=== PATIENT | female | born 1960 | race Caucasian/White ===

== ENCOUNTER → 2020-05-09 07:32 | Outpatient (CLI) | payer OTHER, SELFPAY ==
--- NOTE | ~2020-05-09 | MR_ITS ---
EXAMINATION: MR ankle LT wo con DATE: 05/09/2020 08:23 INDICATION: Burning left ankle pain. TECHNIQUE: Magnetic resonance imaging (MRI) of the left ankle was performed without intravenous contr ast. Sequences included sagittal, coronal, and axial proton-density weighted fast spin echo without a nd with fat saturation. COMPARISON: None. FINDINGS: Medial ankle ligaments: Deep and superficial deltoid ligaments as well as the spring ligament are normal. Lateral ankle ligaments: The anterior and posterior inferior tibiofibular ligaments are normal. The anterior talofibular, calc aneofibular and posterior talofibular ligaments are normal. Tendons: Mild Achilles peritendinitis with mild tendinosis without discrete tear at the distal insertion of th e Achilles tendon. Small amount of fluid along the peroneal tendon sheath consistent with mild tenosy novitis. There is mild peroneus brevis tendinopathy with longitudinal split tear. The tibialis anteri or and extensor hallucis longus and extensor digitorum longus tendons are normal. The flexor digitoru m longus and flexor hallucis longus tendons are normal. Small amount of fluid consistent with mild te nosynovitis along the otherwise normal posterior tibial tendon. Plantar fascia: Plantar aponeurosis is normal. Bones/other: There is a chronic nondisplaced, nonunited avulsion fracture at the tip of the lateral malleolus whic h includes the insertion of the anterior talofibular ligament. Bone alignment is normal. No acute fra cture. No reactive marrow edema, osteochondral lesion or pathologic marrow replacing process. Joint s paces are normal. No cortical erosions. Tarsal tunnel and sinus Tarsi are normal. Fluid: Physiologic amount fluid in the joint spaces. Mild edema in the soft tissues surrounding the retrocal caneal bursa which measures approximately 13 x 7 x 7 mm consistent with retrocalcaneal bursitis. IMPRESSION: 1. Mild Achilles peritendinitis and mild tendinosis at the distal insertion of the Achilles tendon wi thout discrete tendon tear. 2. Retrocalcaneal bursitis. 3. 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 4. Mild tibialis posterior and peroneal tenosynovitis with mild tendinopathy and longitudinal split t ear of the peroneus brevis tendon. Reviewed, dictated and finalized at location A. IMPRESSION: 1. Mild Achilles peritendinitis and mild tendinosis at the distal insertion of the Achilles tendon without discrete tendon tear. 2. Retrocalcaneal bursitis. 3. Chronic nonunited avulsion fracture fragment at the tip of the lateral malle olus which includes the footplate of the anterior talofibular ligament. 4. Mild tibialis posterior and peroneal tenosynovitis with mild tendinopathy an d longitudinal split tear of the peroneus brevis tendon.
== END ==
PROVIDERS: Visit Provider Orthopaedic Surgery
DX: G89.29 Other chronic pain (principal); M77.52 Other enthesopathy of left foot and ankle; S82.62XA Displaced fracture of lateral malleolus of left fibula, initial encounter for closed fracture; X58.XXXA Exposure to other specified factors, initial encounter
CPT/HCPCS: 73721

== ENCOUNTER → 2020-08-28 07:51 | Outpatient (CLI) | payer OTHER, SELFPAY ==
--- NOTE | ~2020-08-28 | US_ITS ---
EXAMINATION: US right upper quadrant DATE: 08/28/2020 08:14 INDICATION: Abnormal liver function tests. TECHNIQUE: Multiple grayscale and Doppler ultrasound images of the abdomen were obtained. COMPARISON: None FINDINGS: Abdominal aorta is normal in caliber. The visualized portions of the head and body of the p ancreas are normal. There is diffuse hepatic steatosis. No liver surface nodularity. There is normal flow in main portal vein. The gallbladder is normal in size. No gallstones or gallbladder wall thicke yoel. There was no sonographic Hunt sign. The common duct is normal and measures 4 mm. IMPRESSION: 1. Diffuse hepatic steatosis. Reviewed, dictated and finalized at location A. L MGR
== END ==
PROVIDERS: PCP Family Medicine; Visit Provider Family Medicine
DX: R79.89 Other specified abnormal findings of blood chemistry (principal); K76.0 Fatty (change of) liver, not elsewhere classified
CPT/HCPCS: 76705

== ENCOUNTER → 2021-07-10 09:15 | Outpatient (CLI) | payer OTHER, SELFPAY ==
--- NOTE | ~2021-07-10 | MR_ITS ---
EXAMINATION: MR ankle LT wo con DATE: 07/10/2021 10:18 INDICATION: Chronic left ankle pain. Assess for Achilles tendon tear.. TECHNIQUE: Magnetic resonance imaging (MRI) of the left ankle was performed without intravenous contr ast. Sequences included sagittal, coronal, and axial proton-density weighted fast spin echo without a nd with fat saturation. COMPARISON: 05/09/2020 FINDINGS: Medial ankle ligaments: Deep and superficial deltoid ligaments as well as the spring ligament are normal. Lateral ankle ligaments: The anterior and posterior inferior tibiofibular ligaments are normal. The anterior talofibular, calc aneofibular and posterior talofibular ligaments are normal. Tendons: Increased now moderate thickening of the distal Achilles tendon consistent with tendinosis without di screte tear. There are a pair of new fixation screws at the calcaneal insertion of the distal Estevan s tendon. The peroneus longus tendon is normal. Unchanged mild peroneus brevis tendinopathy with long itudinal split tear. The tibialis anterior and extensor hallucis longus and extensor digitorum longus tendons are normal. The tibialis posterior, flexor digitorum longus and flexor hallucis longus tendo ns are normal. Plantar fascia: Plantar aponeurosis is normal. Bones/other: No change in chronic nondisplaced nonunited avulsion fracture at the tip of the lateral malleolus whi ch includes insertion of the anterior talofibular ligament. Bone alignment is normal. No acute fractu re. Joint spaces appear normal. No reactive edema or pathologic marrow replacing process. Tarsal tunn el and sinus Tarsi are normal. Fluid: Physiologic amount of fluid in the joint spaces. No tenosynovitis, bursitis or other abnormal fluid c ollections. IMPRESSION: 1. Moderate distal Achilles tendinosis with fixation screws at its calcaneal insertion. No evident Ac hilles tendon tear. 2. Unchanged chronic nondisplaced, nonunited avulsion fracture at the tip of the lateral malleolus. 3. Unchanged mild tendinopathy and longitudinal split tear of the peroneus brevis tendon. Reviewed, dictated and finalized at location A. IMPRESSION: 1. Moderate distal Achilles tendinosis with fixation screws at its calcaneal in sertion. No evident Achilles tendon tear. 2. Unchanged chronic nondisplaced, nonunited avulsion fracture at the tip of th e lateral malleolus. 3. Unchanged mild tendinopathy and longitudinal split tear of the peroneus brev is tendon.
== END ==
PROVIDERS: PCP Family Medicine; Visit Provider Orthopaedic Surgery
DX: M76.62 Achilles tendinitis, left leg (principal); S82.65XD Nondisplaced fracture of lateral malleolus of left fibula, subsequent encounter for closed fracture with routine healing; X58.XXXD Exposure to other specified factors, subsequent encounter
CPT/HCPCS: 73721

== ENCOUNTER → 2022-09-21 15:30 | Outpatient (CLI) | payer OTHER, SELFPAY ==
--- NOTE | ~2022-09-21 | DEXA_ITS ---
Bone Density Report Name: NAVNEET WANG Age: 62 Sex: Female Ethnicity: White Date of : 1960 Indication: postmenopausal; screening for osteoporosis; prior fracture; Referring Provider: Arti, Josefa Study: Bone densitometry was performed. Exam Date: September 21, 2022 Accession number: [id number] Bone Density: Region BMD T-score Z-score Classification AP Spine (L1-L4) 1.021 -0.2 1.3 Normal Femoral Neck (Left) 0.630 -2.0 -0.6 Osteopenia Total Hip (Left) 0.863 -0.6 0.4 Normal Femoral Neck (Right) 0.629 -2.0 -0.6 Osteopenia Total Hip (Right) 0.830 -0.9 0.1 Normal Total Hip Mean 0.847 -0.8 0.3 Normal World Health Organization criteria for BMD impression classify patients as: Normal (T-score at or above -1.0), Osteopenia (T-score between -1.0 and -2.5), or Osteoporosis (T-score at or below -2.5). 10-year Fracture Risk(1): Major Osteoporotic Fracture 15% Hip Fracture 1.9% Reported Risk Factors: [place] (), Neck BMD=0.629, BMI=36.2, previous fracture (1) FRAX(R) Version 3.08. Fracture probability calculated for an untreated patient. Fracture probability may be lower if the patient has received treatment. Clinical Information Provided by Patient: Has had a low trauma fracture Patient maximum height was 64.5 Menopause Age: 51 No regular weight bearing exercise Drinks caffeinated beverages Onset of menses at age 13 Number of children 1 Missed period for more than 6 months in a row Impression: The patient has low bone mass, based on the Left Femoral Neck T-score. The patient has an estimated ten-year risk of hip fracture of 1.9% and an estimated ten-year risk of major fracture of 15%, based on the WHO FRAX algorithm. The patient has risk factors, including: previous fracture. Discussion: BONE DENSITY IS LOW AT ONE OR MORE SKELETAL SITES. This patient's lowest T-score is low at one or more skeletal sites. It meets the World Health Organization's (WHO) criteria for ?low bone mass? (T-score between -1.0 and -2.5). The patient's 10-year risk of fracture as calculated by FRAX is less than the threshold where pharmacological therapy is recommended by the National Osteoporosis Foundation (NOF). However, all treatment decisions require clinical judgment and consideration of individual patient factors, including patient preferences, comorbidities, previous drug use, risk factors not captured in the FRAX model (e.g., frailty, falls, vitamin D deficiency, increased bone turnover, interval significant decline in bone density) and possible under or overestimation of fracture risk by FRAX. The patient should follow a healthful lifestyle (good nutrition with adequate calcium and vitamin D, and appropriate weight-bearing exercise). Follow-Up: Consider repeating this study in 2 to 3 years to
== END ==
PROVIDERS: PCP Family Medicine; Visit Provider Family Medicine
DX: Z13.820 Encounter for screening for osteoporosis (principal); Z82.62 Family history of osteoporosis; M85.852 Other specified disorders of bone density and structure, left thigh; M85.851 Other specified disorders of bone density and structure, right thigh
CPT/HCPCS: 77080